=== PATIENT | male | born 1975 | race Hispanic/Latino ===

== ENCOUNTER 2018-12-25 18:26 | Emergency (ER) | payer MEDICARE, OTHER ==
[~2018-12-25 18:26] MED LIST: BUSP10TA3 PO; DIVA500T52 PO; FENO145T37 PO; LEVO500T89 PO; LEVO75TA10 PO; METR-172 PO; OMEG-75 PO; OMEP40CA37 PO; TAMS0.4C32 PO; TRAM-355 PO
[2018-12-25 18:56] LABS: BASOPHILS % (AUTO) 2.8 % (0.0-5.0); EOSINOPHILS % (AUTO) 2.3 % (0.0-8.0); LYMPHOCYTES % (AUTO) 13.7 % (21.0-51.0); MEAN CORPUSCULAR HEMOGLOBIN 30.6 pg (27.0-33.0); MEAN CORPUSCULAR HGB CONC 33.8 g/dL (32.0-36.0); MEAN CORPUSCULAR VOLUME 90.7 fL (79-99); MONOCYTES % (AUTO) 4.6 % (3.0-13.0); NEUTROPHILS % (AUTO) 76.6 % (40.0-77.0); NUCLEATED RED BLOOD CELLS 0.1 % (0.0-0.19); PLATELET COUNT (AUTO) 213 K/uL (130-400); RED BLOOD CELL COUNT(AUTO) 5.18 MIL/uL (4.50-6.20); RED CELL DISTRIBUTION WIDTH 14.2 % (11.0-15.5); WHITE BLOOD COUNT (AUTO) 10.7 K/uL (4.8-10.8)
[2018-12-25 18:58] LABS: CREATININE 1.1 mg/dL (0.5-1.5); POTASSIUM 3.6 mmol/L (3.5-5.1)
[2018-12-25 19:01] LABS: INR 0.91 (0.85-1.15); PARTIAL THROMBOPLASTIN TIME 30.3 SEC (26.3-35.5); PROTHROMBIN TIME 9.6 SEC (9.6-11.6)
[2018-12-25 19:07] LABS: ALBUMIN 3.6 g/dL (3.5-5.0); BILIRUBIN,TOTAL 0.5 mg/dL (0.2-1.0); TOTAL PROTEIN, SERUM 7.3 g/dL (6.0-8.3)
[2018-12-25] MEDS ORDERED: ASPIRIN 325 MG TABLET ONE (20:22)
== END 2018-12-25 22:15 | disposition home or self-care (01) ==
LOC: EDH 18:26
DX: R07.89 Other chest pain (principal); E78.00 Pure hypercholesterolemia, unspecified; F31.9 Bipolar disorder, unspecified; F41.9 Anxiety disorder, unspecified; E07.9 Disorder of thyroid, unspecified; Z72.0 Tobacco use
CPT/HCPCS: 36415; 71045; 80053; 84484; 85025; 85610; 85730; 93005

== ENCOUNTER → 2019-01-08 | Outpatient (CLI) | payer OTHER ==
[~2019-01-08] MED LIST changes: +ALBUTEROL SULFATE 0.083% 2.5 MG/3 ML INH IH ONE
== END ==
LOC: RESP 13:02
PROVIDERS: ATTEND Internal Medicine Cardiovascular Disease
DX: G47.33 Obstructive sleep apnea (adult) (pediatric) (principal); R06.02 Shortness of breath; F17.200 Nicotine dependence, unspecified, uncomplicated
CPT/HCPCS: 94060; 94727; 94729

== ENCOUNTER → 2019-02-06 | Outpatient (CLI) | payer OTHER ==
[~2019-02-06] MED LIST changes: -ALBUTEROL SULFATE 0.083% 2.5 MG/3 ML INH IH ONE
== END | disposition home or self-care (01) ==
LOC: SHCH 08:27
PROVIDERS: ATTEND Internal Medicine Cardiovascular Disease
DX: I20.9 Angina pectoris, unspecified (principal)
CPT/HCPCS: 93306

== ENCOUNTER → 2019-02-11 | Outpatient (CLI) | payer OTHER ==
[~2019-02-11] VITALS: Ht 175.3 cm; Wt 123.8 kg
[2019-02-11] MEDS: REGADENOSON 0.4 MG/5 ML PF SYG IVP SCH (10:35)
== END | disposition home or self-care (01) ==
LOC: SHCH 08:07
PROVIDERS: ATTEND Internal Medicine Cardiovascular Disease
DX: I20.9 Angina pectoris, unspecified (principal)
CPT/HCPCS: 78452; 93017; 96374; A9500 ×2; J2785

== ENCOUNTER 2019-11-25 12:08 | Observation (INO) | payer MEDICARE, OTHER ==
[~2019-11-25] VITALS: Ht 175.3 cm; Wt 122.9 kg
[~2019-11-25 12:08] MED LIST changes: +FENO145T26 PO; -FENO145T37 PO; +OMEP40CA13 PO; -OMEP40CA37 PO
[2019-11-25 13:30] LABS: CREATININE 1.1 mg/dL (0.5-1.5); POTASSIUM 3.9 mmol/L (3.5-5.1)
[2019-11-25 13:33] LABS: BASOPHILS % (AUTO) 0.8 % (0.0-5.0); EOSINOPHILS % (AUTO) 2.7 % (0.0-8.0); HEMATOCRIT 44.8 % (42-54); LYMPHOCYTES % (AUTO) 14.3 % (21.0-51.0); MEAN CORPUSCULAR HEMOGLOBIN 30.9 pg (27.0-33.0); MEAN CORPUSCULAR HGB CONC 33.5 g/dL (32.0-36.0); MEAN CORPUSCULAR VOLUME 92.4 fL (79-99); MONOCYTES % (AUTO) 8.2 % (3.0-13.0); NEUTROPHILS % (AUTO) 71.3 % (40.0-77.0); PLATELET COUNT (AUTO) 219 K/uL (130-400); RED BLOOD CELL COUNT(AUTO) 4.85 MIL/uL (4.50-6.20); RED CELL DISTRIBUTION WIDTH 13.5 % (11.0-15.5)
[2019-11-25 13:36] LABS: ALBUMIN 3.4 g/dL (3.5-5.0); BILIRUBIN,DIRECT 0.1 mg/dL (0.0-0.3); BILIRUBIN,TOTAL 0.3 mg/dL (0.2-1.0); TOTAL PROTEIN, SERUM 6.9 g/dL (6.0-8.3)
[2019-11-25 13:42] LABS: INR 0.87 (0.85-1.15); PARTIAL THROMBOPLASTIN TIME 27.6 SEC (26.3-35.5); PROTHROMBIN TIME 9.4 SEC (9.6-11.6)
[2019-11-25] MEDS ORDERED: ASPIRIN 81MG TAB.CHEW ONE (14:22)
[2019-11-25] MEDS ORDERED: ENOXAPARIN SODIUM 100 MG/1 ML SQ ONE (14:22)
[2019-11-25] MEDS ORDERED: CLOPIDOGREL BISULFATE 75 MG TAB ONE (14:23)
--- NOTE | 2019-11-25 16:12 | NUR ---
DCP: HOME SW met with pt who is on SSD for Bipolar and anxiety. Lives with HANNA Tatum [phone], mother Taylor Allison [phone] is ER contact. Pt has provider services 3.5 hrs a day thru [facility], no DME or HH services. PCP is Dr Jacques. Pt denies dc needs, plan is home at pr. Addendum: 11/25/19 at 1615 by NI PAGE SS Amended: Links added.
[2019-11-25 18:25] VITALS: BP 124/85
--- NOTE | 2019-11-25 19:50 | NUR ---
SMOKING PT'S ROOM SMELLED OF CIGARETTES. PT CLAIMS THAT HE HAD SMOKED IN THE ROOM. TOLD PT HE CAN NOT SMOKE IN THE ROOM. PT AGREED NOT TO DO IT AGAIN.
--- NOTE | 2019-11-25 20:00 | NUR ---
ASSESS SHIFT ASSESSMENT DONE. ADMISSION DATA BASE COMPLETED. INSTRUCTED TO BE NPO POST MN RIKA ROOT IN AM. PT VERBALIZES UNDERSTANDING. KEPT RESTED AND COMFORTABLE IN BED. ORIENTED TO ROOM AND UNIT. FOR MORE CARE AND MANAGEMENT. Addendum: 11/26/19 at 0245 by DANYA JEAN RN RN Amended: Links added.
[2019-11-25] MEDS ORDERED: ONDANSETRON HCL 4 MG/2 ML VIAL IVP PRN (21:15)
[2019-11-25] MEDS ORDERED: GUAIFENESIN-DM 200/20 MG 10 ML PO PRN (21:15)
[2019-11-25] MEDS ORDERED: MAG HYDROX/AL HYDROX/SIMETH ES 30 ML SUSP UDCUP PO PRN (21:15)
[2019-11-25] MEDS ORDERED: ZOLPIDEM TARTRATE 5 MG TAB PO PRN (21:15)
[2019-11-25] MEDS ORDERED: DIPHENHYDRAMINE HCL 25 MG CAPSULE PO PRN (21:15)
[2019-11-25] MEDS ORDERED: ACETAMINOPHEN 325 MG TAB PO PRN (21:15)
[2019-11-25] MEDS ORDERED: SODIUM CHLORIDE 0.9% 10 ML VIAL IVP SCH (21:15)
[2019-11-25] MEDS ORDERED: HYDROCODONE/ACETAMINOPHEN 10/325 MG TAB PO PRN (21:30)
[2019-11-25] MEDS ORDERED: TRAZ-187 PO (21:34)
[2019-11-25] MEDS ORDERED: HYDR-4068 PO (21:34)
[2019-11-25] MEDS ORDERED: LAMO200T10 PO (21:34)
[2019-11-25] MEDS ORDERED: LURA80TA PO (21:34)
[2019-11-25] MEDS ORDERED: OMEP40CA13 PO (21:34)
[2019-11-25] MEDS ORDERED: CEPH500B PO (21:34)
[2019-11-25 21:51] LABS: CREATINE KINASE, TOTAL 58 U/L (21-232); MYOGLOBIN 19 ng/mL (10-92); TROPONIN I < 0.04 ng/mL (0.00-0.06)
--- NOTE | 2019-11-25 23:31 | NUR ---
SOB PT CALLS AND CLAIMS OF HAVING SOB. AND HAD A COUGHING EPISODE. O2 SAT=95% ON RA. KEPT HOB ELEVATED. PLACED PT ON O2 AT 2LPM VIA NC. MEDICATED WITH COUGH SYRUP. WILL RE-ASSESS PT.
[2019-11-25 23:47] VITALS: BP 136/77
--- NOTE | 2019-11-26 02:00 | NUR ---
ROUNDS PT RESTING WELL, FAIRLY ASLEEP. NOTED TO BE SNORING WHEN ASLEEP. KEPT UNDISTURBED FOR NOW. KEPT HOB ELEVATED. WILL MONITOR PT.
[2019-11-26 03:36] LABS: MEAN CORPUSCULAR HEMOGLOBIN 31.3 pg (27.0-33.0); MEAN CORPUSCULAR HGB CONC 33.3 g/dL (32.0-36.0); MEAN CORPUSCULAR VOLUME 93.8 fL (79-99); RED BLOOD CELL COUNT(AUTO) 4.8 MIL/uL (4.50-6.20); RED CELL DISTRIBUTION WIDTH 13.6 % (11.0-15.5); WHITE BLOOD COUNT (AUTO) 14.3 K/uL (4.8-10.8)
--- NOTE | 2019-11-26 04:00 | NUR ---
SHOWER PT SHOWERED, TOLERATED ACTIVITY WELL. KEPT NPO FOR LEXISCAN. FOR MORE CARE.
[2019-11-26 04:12] LABS: CARBON DIOXIDE 31 mmol/L (21-32); CHLORIDE 103 mmol/L (101-111); CREATINE KINASE, TOTAL 56 U/L (21-232); CREATININE 1.1 mg/dL (0.5-1.5); GLOMERULAR FILTR. RATE CALC 77 mL/min (>60); GLUCOSE,RANDOM 138 mg/dL (70-105); MYOGLOBIN 20 ng/mL (10-92); POTASSIUM 4.2 mmol/L (3.5-5.1); SODIUM SERUM 139 mmol/L (136-145); TROPONIN I < 0.04 ng/mL (0.00-0.06); UREA NITROGEN, BLOOD 13 mg/dL (7-18)
[2019-11-26 04:17] VITALS: BP 124/82
[2019-11-26] MEDS: LEVOTHYROXINE 75 MCG TABLET PO SCH (06:37)
[2019-11-26] MEDS: PANTOPRAZOLE SODIUM 40 MG TABLET.DR PO SCH (06:37)
[2019-11-26 07:54] VITALS: BP 130/77
[2019-11-26] MEDS ORDERED: ASPIRIN 81MG TAB.CHEW PO SCH (09:00)
[2019-11-26] MEDS ORDERED: TAMSULOSIN HCL 0.4 MG CAP.ER.24H PO SCH (09:00)
[2019-11-26] MEDS ORDERED: LURASIDONE HCL 80 MG PO SCH (09:00)
[2019-11-26] MEDS: CEPHALEXIN 500 MG CAPSULE PO SCH ×2 (09:00→21:37)
[2019-11-26] MEDS ORDERED: CLOPIDOGREL BISULFATE 75 MG TAB PO SCH (09:00)
[2019-11-26] MEDS ORDERED: REGADENOSON 0.4 MG/5 ML PF SYG IVP SCH (11:00)
[2019-11-26 11:38] VITALS: BP 116/71
[2019-11-26] MEDS: ENOXAPARIN SODIUM 120 MG/0.8ML SQ SCH ×2 (15:33→21:39)
[2019-11-26] MEDS: BUSPIRONE HCL 5 MG TABLET PO SCH ×3 (15:35→21:37)
[2019-11-26] MEDS: LAMOTRIGINE 100 MG TABLET PO SCH ×2 (15:35→21:37)
[2019-11-26 16:00] VITALS: BP 117/63
[2019-11-26 19:00] VITALS: BP 124/84
[2019-11-26] MEDS ORDERED: TRAZODONE HCL 100 MG TABLET PO SCH (21:00)
[2019-11-26 23:00] VITALS: BP 111/69
[2019-11-27 03:00] VITALS: BP 124/81
[2019-11-27 04:45] LABS: HEMATOCRIT 46.2 % (42-54); MEAN CORPUSCULAR HEMOGLOBIN 30.6 pg (27.0-33.0); MEAN CORPUSCULAR HGB CONC 32.9 g/dL (32.0-36.0); PLATELET COUNT (AUTO) 221 K/uL (130-400); RED BLOOD CELL COUNT(AUTO) 4.97 MIL/uL (4.50-6.20); RED CELL DISTRIBUTION WIDTH 13.6 % (11.0-15.5); WHITE BLOOD COUNT (AUTO) 13.3 K/uL (4.8-10.8)
[2019-11-27] MEDS: PANTOPRAZOLE SODIUM 40 MG TABLET.DR PO SCH (05:54)
[2019-11-27] MEDS: LEVOTHYROXINE 75 MCG TABLET PO SCH (05:54)
[2019-11-27 06:31] LABS: BAND NEUTROPHILS % (MANUAL) 5 % (0-2); LYMPHOCYTES % (MANUAL) 19 % (22-44); MAN.DIFF COMMENT-IMPRESSION MANUAL DIFFERENTIAL; MONOCYTES % (MANUAL) 7 % (2-9); PLATELET MORPHOLOGY COMMENT ADEQUATE; REACTIVE LYMPHOCYTES 2 % (0-0); SEGMENTED NEUTROPHILS % 67 % (40-70)
--- NOTE | 2019-11-27 07:15 | NUR ---
note AOX3. DENIES PAIN OR DISCOMFORT AT THIS TIME. NO CHEST PAIN. TELEMETRY UNEVENTFUL. NSR. LEXISCAN RESULTS FOUND ON INFINIT AND SHOWN TO DR FRANCO WHO JUST FINISHED ROUNDING AND HE GAVE ORDERS TO DC PATIENT HOME TO FOLLOW UP WITH HIM TOMORROW WITH PRE-SCHEDULED APPOINTMENT. WILL DC HOME SOON.
[2019-11-27 07:37] VITALS: BP 126/78
--- NOTE | 2019-11-27 08:45 | NUR ---
NOTE DISCHARGE INSTRUCTIONS GIVEN TO PATIENT AT THIS TIME. VERBALIZED UNDERSTANDING. REFER TO DC SUMMARY FOR DETAILS.
== END 2019-11-27 08:50 | disposition home or self-care (01) ==
LOC: EDH 12:08 → EDHIP 12:09 → 3BH 18:27
PROVIDERS: ADMIT Internal Medicine; ATTEND Internal Medicine
DX: I25.110 Atherosclerotic heart disease of native coronary artery with unstable angina pectoris (principal); J44.9 Chronic obstructive pulmonary disease, unspecified; E03.9 Hypothyroidism, unspecified; F31.9 Bipolar disorder, unspecified; F41.9 Anxiety disorder, unspecified; F17.210 Nicotine dependence, cigarettes, uncomplicated; E66.01 Morbid (severe) obesity due to excess calories; D72.829 Elevated white blood cell count, unspecified; Z68.41 Body mass index [BMI] 40.0-44.9, adult
CPT/HCPCS: 36415 ×3; 71046; 78452; 80048 ×3; 80076; 82550 ×3; 83874 ×2; 84484 ×3; 85025 ×2; 85027; 85610; 85730; 93017; 96372; 99284; A9500 ×2; G0378 ×13; J1650 ×2; J2785; 96374

== ENCOUNTER → 2022-03-23 | Outpatient (CLI) | payer MEDICARE ==
[~2022-03-23] MED LIST changes: +CEPH500B PO; -DIVA500T52 PO; -FENO145T26 PO; +HYDR-4068 PO; +IOHEXOL 350 MG/ML 100ML INFUS..BTL IV ONE; +LAMO200T10 PO; -LEVO500T89 PO; +LURA80TA2 PO; -METR-172 PO; -OMEG-75 PO; -OMEP40CA13 PO; +OMEP40CA21 PO; -TRAM-355 PO; +TRAZ-187 PO
== END | disposition home or self-care (01) ==
LOC: RAH 10:04
PROVIDERS: ATTEND Internal Medicine Gastroenterology
DX: N28.1 Cyst of kidney, acquired (principal); R10.10 Upper abdominal pain, unspecified; M47.815 Spondylosis without myelopathy or radiculopathy, thoracolumbar region; N20.0 Calculus of kidney; K57.90 Diverticulosis of intestine, part unspecified, without perforation or abscess without bleeding
CPT/HCPCS: 74178; Q9967

== ENCOUNTER 2022-09-10 08:01 | Emergency (ER) | payer MEDICARE ==
[~2022-09-10] VITALS: Ht 175.3 cm; Wt 119.3 kg
[~2022-09-10 08:01] MED LIST changes: -IOHEXOL 350 MG/ML 100ML INFUS..BTL IV ONE
[2022-09-10 10:39] VITALS: BP 106/63
[2022-09-10] MEDS ORDERED: NAPR500T6 PO (11:55)
== END 2022-09-10 12:21 | disposition home or self-care (01) ==
LOC: EDH 08:01
DX: S00.03XA Contusion of scalp, initial encounter (principal); S50.02XA Contusion of left elbow, initial encounter; S80.02XA Contusion of left knee, initial encounter; F41.9 Anxiety disorder, unspecified; F31.9 Bipolar disorder, unspecified; E78.00 Pure hypercholesterolemia, unspecified; E11.9 Type 2 diabetes mellitus without complications; I10 Essential (primary) hypertension; Z79.899 Other long term (current) drug therapy; W01.0XXA Fall on same level from slipping, tripping and stumbling without subsequent striking against object, initial encounter; Y93.89 Activity, other specified; Y92.89 Other specified places as the place of occurrence of the external cause; Y99.8 Other external cause status
CPT/HCPCS: 70450; 73080; 73562

== ENCOUNTER → 2023-12-13 | Outpatient (CLI) | payer OTHER ==
[~2023-12-13] MED LIST changes: +NAPR500T6 PO
== END | disposition home or self-care (01) ==
LOC: RAH 13:38
PROVIDERS: ATTEND Internal Medicine
DX: R06.02 Shortness of breath (principal)
CPT/HCPCS: 93306

== ENCOUNTER → 2024-01-28 | Outpatient (CLI) | payer OTHER ==
[2024-01-28] MEDS: REGADENOSON 0.4 MG/5 ML PF SYG IVP SCH (14:11)
== END | disposition home or self-care (01) ==
LOC: RAH 08:44
PROVIDERS: ATTEND Internal Medicine
DX: R07.89 Other chest pain (principal)
CPT/HCPCS: 78452; 93017; J2785; A9500 ×2; 96374

== ENCOUNTER → 2024-09-24 | Outpatient (CLI) | payer OTHER, MEDICARE ==
[~2024-09-24] MED LIST changes: +NAPR-1506 PO; -NAPR500T6 PO
--- NOTE | 2024-09-24 14:01 | HMCIMG ---
ULTRASOUND OF THE PELVIS LIMITED INDICATION: Pelvic pain COMPARISONS: None TECHNIQUE: Transabdominal real-time sonographic images were acquired earlier, and subsequently made available for review. FINDINGS/IMPRESSION: Prostate gland volume = 20 mL. Urinary bladder appears normal without any free fluid demonstrated. Prevoid volume = 470 mL and postvoid = 12 mL.
== END | disposition home or self-care (01) ==
LOC: RAH 13:03
PROVIDERS: ATTEND Internal Medicine
DX: N40.1 Benign prostatic hyperplasia with lower urinary tract symptoms (principal); R10.2 Pelvic and perineal pain
CPT/HCPCS: 76857

== ENCOUNTER → 2024-11-21 | Outpatient (CLI) | payer OTHER, MEDICARE ==
--- NOTE | 2024-11-21 20:10 | HMCSR ---
APPROVED REPORT EXAM: Two-dimensional and M-mode echocardiogram with Doppler and color Doppler. INDICATION ICD: Chest pain R07.9 2D Dimensions RVDd3.2 cmLVEF(%)55.6 (>50%)LVED Vol(simp.)91.0 mL IVSd0.9 (0.7-1.1cm)FS(%)29 %LVES Vol(simp.)39.0 mL LVDd5.3 (3.8-5.6cm)LA (2D)3.1 (1.6-4.0cm)LVEF(%, simp.)57 % PWd0.9 (0.7-1.1cm)Ao Root(2D)3.3 (2.0-3.7cm)LA ESV INDEX (BP)13.48 mL/m2 LVDs3.7 (2.5-4.0cm)LVOT diam2.0 (1.8-2.4cm) IVC diam1.3 cm M-Mode Dimensions EPSS0.6 cm LA (MM)2.9 (1.6-4.0cm) Ao Root(MM)2.5 (2.0-3.7cm) Aortic Valve AoV Vmax1.9 m/Kayleigh Peak GR14.0 mmHgLVOT Vmax1.2 m/s AoV VTI0.3 mAo Mean GR6.9 mmHgLVOT VTI0.22 m SHEFALI (VMAX)1.89 cm2AVA (VTI) 1.9 cm2 Mitral Valve MV E Vmax79.3 cm/sDECEL Hsva206 ms MV A Vmax50.0 cm/sP 1/2 T91 ms E/A ratio1.6MVA (PHT)2.4 cm2 TDI E/E' Medial8.0E/E' Lateral8.8 Medial E' Peak V9.86 cm/sLateral E' Peak V9.00 cm/s Pulmonary Valve PV Vmax1.3 m/sPV VTI0.28 mPV Mean GR4.0 mmHg PV Peak GR6.9 mmHg Left Ventricle The left ventricle is normal size. There is normal left ventricular wall thickness. LVEF is 60-65%. T he left ventricular diastolic function is normal. Right Ventricle The right ventricle is normal size. The right ventricular systolic function is normal. Atria The left atrium size is normal. The right atrium size is normal. Aortic Valve The aortic valve is normal in structure. No aortic regurgitation is present. There is no aortic valvu lar stenosis. Mitral Valve The mitral valve is normal in structure. There is no mitral valve regurgitation noted. There is no mi tral valve stenosis. Tricuspid Valve The tricuspid valve is normal in structure. There is no tricuspid valve regurgitation noted. Pulmonic Valve The pulmonary valve is normal in structure. There is no pulmonic valvular regurgitation. Great Vessels The aortic root is normal in size. The IVC is normal in size and collapses >50% with inspiration. Pericardium There is no pericardial effusion. Conclusion The left ventricle is normal size. LVEF is 60-65%. The left ventricular diastolic function is normal. The right ventricle is normal size. The right ventricular systolic function is normal. The left atrium size is normal. The right atrium size is normal. No valvular pathology. There is no pericardial effusion.
== END | disposition home or self-care (01) ==
LOC: RAH 13:24
PROVIDERS: ATTEND Internal Medicine
DX: R07.9 Chest pain, unspecified (principal)
CPT/HCPCS: 93306

== ENCOUNTER → 2024-11-27 | Outpatient (CLI) | payer OTHER, MEDICARE ==
[~2024-11-27] MED LIST changes: +IOHEXOL-350 75 ML VIAL IV ONE
--- NOTE | 2024-11-27 12:45 | HMCIMG ---
CT CHEST W/CONTRAST HISTORY: Pulmonary nodule COMPARISON: None TECHNIQUE: Multiple sequential axial images of the chest were obtained from the thoracic inlet through upper abdomen. Patient was given 75 cc of Omnipaque through intravenous route. FINDINGS: There is no evidence of pulmonary nodule or parenchymal disease. No pleural effusion or pericardial effusion is seen. There is no evidence of pneumothorax. There are normal size mediastinal and hilar lymph nodes. The heart is not enlarged. Degenerative changes of the thoracolumbar spine are present. There is no evidence of adrenal nodule. Dystrophic calcification with adjacent cyst is seen in the anterior aspect of the right kidney measuring 1 cm. IMPRESSION: 1. No evidence of pulmonary nodule or effusion is seen. CT was performed with one or more following dose reduction techniques: automated exposure control, adjustment of the mA and kv according to patient's size, or use of a iterative reconstruction technique.
== END | disposition home or self-care (01) ==
LOC: RAH 10:46
PROVIDERS: ATTEND Internal Medicine
DX: R91.1 Solitary pulmonary nodule (principal); M47.815 Spondylosis without myelopathy or radiculopathy, thoracolumbar region; N28.1 Cyst of kidney, acquired; N28.89 Other specified disorders of kidney and ureter
CPT/HCPCS: 71260; Q9967

== ENCOUNTER → 2025-01-07 | Outpatient (CLI) | payer OTHER, MEDICARE ==
[~2025-01-07] MED LIST changes: -IOHEXOL-350 75 ML VIAL IV ONE
--- NOTE | 2025-01-07 21:33 | HMCIMG ---
EXAM: MR Brain Without IV Contrast CLINICAL HISTORY: Amnesia. TECHNIQUE: Multiplanar multi-sequence MRI of the brain. CONTRAST: No. COMPARISON: CT dated 09/10/22. FINDINGS: No abnormal parenchymal signal is present. No evidence of acute cortical infarction, hemorrhage, mass or mass effect. The ventricular system is normal in size, shape, and contour. No hydrocephalus. No abnormal extra-axial fluid collection is present. The marrow signal within the skull base and calvarium is intact. Moderate-sized mucus retention cyst in the left maxillary sinus. Remaining paranasal sinuses and mastoid air cells are clear. IMPRESSION: No acute intracranial abnormality or mass. Moderate-sized mucus retention cyst in the left maxillary sinus. /[place]
== END | disposition home or self-care (01) ==
LOC: RAH 08:20
PROVIDERS: ATTEND Internal Medicine
DX: J34.1 Cyst and mucocele of nose and nasal sinus (principal); R41.3 Other amnesia
CPT/HCPCS: 70551

== ENCOUNTER → 2025-03-05 | Outpatient (CLI) | payer OTHER, MEDICARE ==
[~2025-03-05] MED LIST changes: +IOHEXOL 350 MG/ML 100ML INFUS..BTL IV ONE
--- NOTE | 2025-03-05 23:57 | HMCIMG ---
EXAM: CT Abdomen and Pelvis with IV contrast CLINICAL HISTORY: Unspecified abdominal pain TECHNIQUE: Axial computed tomography images of the abdomen and pelvis with intravenous contrast. CONTRAST: with intravenous contrast. COMPARISON: Study dated 03/23/22. FINDINGS: LUNG BASES: The lung bases appear clear. No pleural effusions are seen. LIVER: Unremarkable. GALLBLADDER AND BILE DUCTS: The gallbladder appears within normal limits. No radioopaque gallstones are seen. No biliary ductal dilatation is evident. PANCREAS: Unremarkable. SPLEEN: Unremarkable. ADRENAL GLANDS: 1.9 x 1.2 cm-sized mildly enhancing lesion in the right adrenal gland. No fat content or calcification within. KIDNEYS, URETERS, AND BLADDER: Multiple non-enhancing cysts in both kidneys largest measuring 2.4 x 2.2 cm in the left upper pole. One of the cysts in the right kidney appears calcified. The kidneys appear within normal limits. There is no hydronephrosis or hydroureter. No urinary calculi are seen. STOMACH AND BOWEL: There is diffuse thickening of the gastric wall in the body of the stomach. Colonic diverticulosis without diverticulitis. No evidence of bowel obstruction. No evidence suggesting enteritis or colitis. APPENDIX: No evidence of acute appendicitis on CT examination. PERITONEUM: No free fluid. No free air. LYMPH NODES: No lymphadenopathy is evident. REPRODUCTIVE: Unremarkable as visualized. VASCULATURE: Dilated clarence-gastric collateral noted. Mild atherosclerotic changes in the form of eccentric vessel wall calcification in the abdominal aorta and its major branches. No evidence of abdominal aortic aneurysm. BONES: Degenerative changes in the visualized spine in the form of marginal osteophytes and degenerative discs at multiple lumbar levels. No aggressive appearing osseous lesion. No acute osseous pathology evident. IMPRESSION: 1. Diffuse gastric wall thickening in the body of the stomach. Upper GI or endoscopy when patient is clinically able suggested 2. 1.9 x 1.2 cm mildly enhancing right adrenal lesion. 3. Dilated clarence-gastric collateral noted. 4. Colonic diverticulosis without diverticulitis. /[place]
== END | disposition home or self-care (01) ==
LOC: RAH 08:00
PROVIDERS: ATTEND Internal Medicine
DX: K57.30 Diverticulosis of large intestine without perforation or abscess without bleeding (principal); N28.1 Cyst of kidney, acquired; K31.89 Other diseases of stomach and duodenum; E27.8 Other specified disorders of adrenal gland; R10.9 Unspecified abdominal pain; I70.0 Atherosclerosis of aorta; M47.816 Spondylosis without myelopathy or radiculopathy, lumbar region; M25.78 Osteophyte, vertebrae
CPT/HCPCS: 74177; Q9967

== ENCOUNTER → 2025-03-24 | Outpatient (CLI) | payer OTHER, MEDICARE ==
[~2025-03-24] MED LIST changes: -IOHEXOL 350 MG/ML 100ML INFUS..BTL IV ONE
[2025-03-24 11:13] LABS: CREATININE 1.1 mg/dL (0.5-1.3); GLOMERULAR FILTR. RATE CALC 81.0 mL/min (>90); UREA NITROGEN, BLOOD 12.0 mg/dL (7-18)
== END | disposition home or self-care (01) ==
LOC: LAB 09:57
PROVIDERS: ATTEND Internal Medicine
DX: R19.01 Right upper quadrant abdominal swelling, mass and lump (principal)
CPT/HCPCS: 36415; 82565; 84520

== ENCOUNTER → 2025-03-30 | Outpatient (CLI) | payer OTHER, MEDICARE ==
[~2025-03-30] MED LIST changes: +IOHEXOL-350 75 ML VIAL IV ONE
--- NOTE | 2025-03-31 09:18 | HMCIMG ---
EXAMINATION: CT Abdomen without and with contrast. CLINICAL HISTORY: Right upper quadrant abdominal swelling, mass, and lump / right upper quadrant abdominal swelling, mass, and lump. TECHNIQUE: Multiple contiguous axial CT images were obtained through the abdomen following the administration of intravenous contrast. Coronal and sagittal reconstructions were also obtained. COMPARISON: Prior CT abdomen and pelvis on 03/05/2025. FINDINGS: Included chest is within normal limits. The liver is enlarged in caliber with uniform decreased density. The spleen is enlarged, measuring 16 cm. Stable bilateral renal cortical cysts, the largest in the left kidney measuring 2.4 x 2.2 x 2.1 cm. Right kidney cyst demonstrates calcifications. Stable, mildly enhancing right adrenal lesion measures 1.9 x 1.2 cm. The gallbladder, pancreas, and left adrenal gland appear within normal limits. There are colonic diverticula. Rest of the bowel loops are normal in caliber without evidence of obstruction, ileus, or obvious bowel wall thickening. There is no ascites or lymphadenopathy. The opacified abdominal vessels are patent. No acute or suspicious osseous abnormality. There are multilevel mild degenerative spondylotic changes of the spine. IMPRESSION: Hepatosplenomegaly with hepatic steatosis. Stable bilateral renal cortical cysts. No hydronephrosis. Stable right adrenal adenoma. Colonic diverticula. /[place]
== END | disposition home or self-care (01) ==
LOC: RAH 08:49
PROVIDERS: ATTEND Internal Medicine
DX: K76.0 Fatty (change of) liver, not elsewhere classified (principal); N28.1 Cyst of kidney, acquired; D35.01 Benign neoplasm of right adrenal gland; K57.30 Diverticulosis of large intestine without perforation or abscess without bleeding; R19.01 Right upper quadrant abdominal swelling, mass and lump; M47.817 Spondylosis without myelopathy or radiculopathy, lumbosacral region
CPT/HCPCS: 74170; Q9967

== ENCOUNTER 2025-05-04 05:52 | Day surgery (SDC) | payer OTHER, MEDICARE ==
[2025-05-04] VITALS (10 sets, daily range): BP systolic 119–136; BP diastolic 8–74; PULSE 68–79; RESP 14–17; TEMP 97.4–98.2
[~2025-05-04] VITALS: Ht 175.3 cm; Wt 118.8 kg
[~2025-05-04 05:52] MED LIST changes: -IOHEXOL-350 75 ML VIAL IV ONE
[2025-05-04] MEDS: 0.9%NACL 1000ML 1,000 ML IV ONE (06:47)
[2025-05-04] MEDS ORDERED: OMEP20CA12 PO (06:53)
[2025-05-04] MEDS ORDERED: GABA300C PO (07:00)
[2025-05-04] MEDS ORDERED: BUSPAR PO (07:00)
[2025-05-04] MEDS ORDERED: HYDR-3830 PO (07:00)
[2025-05-04] MEDS ORDERED: FLUT1BLS15 IH (07:00)
[2025-05-04] MEDS ORDERED: EMPA25TA PO (07:00)
[2025-05-04] MEDS ORDERED: METF-446 PO (07:00)
[2025-05-04] MEDS ORDERED: FLUO-341 PO (07:00)
[2025-05-04] MEDS ORDERED: PRAV10TA37 PO (07:10)
[2025-05-04] MEDS ORDERED: LINA145C PO (07:10)
[2025-05-04] MEDS ORDERED: FURO20TA4 PO (07:10)
[2025-05-04] MEDS ORDERED: BACL10TA PO (07:10)
[2025-05-04] MEDS ORDERED: LISI5TAB21 PO (07:10)
[2025-05-04] MEDS ORDERED: ICOS1CAP2 PO (07:10)
[2025-05-04] MEDS ORDERED: GLIP5TAB15 PO (07:10)
[2025-05-04] MEDS ORDERED: RIVAROXABAN 2.5 MG PO (07:10)
[2025-05-04] MEDS ORDERED: TIRZ15PE SQ (07:10)
[2025-05-04] MEDS ORDERED: MIRA25TA PO (07:10)
--- NOTE | 2025-05-04 10:11 | NUR ---
Full and complete discharge instructions given to Patient and Family both verbally and in writing. Explained GI procedure precautions and follow up. All questions answered. PIV removed with catheter tip intact. Family at bedside appearing supportive. W/C to POV with Family to home
== END 2025-05-04 10:00 | disposition home or self-care (01) ==
LOC: ENDO 05:52 → DAH 05:52 → ENDO 10:00
PROVIDERS: ATTEND Internal Medicine Gastroenterology
DX: R19.5 Other fecal abnormalities (principal); D12.8 Benign neoplasm of rectum; R10.13 Epigastric pain; K31.89 Other diseases of stomach and duodenum; K21.00 Gastro-esophageal reflux disease with esophagitis, without bleeding; K29.50 Unspecified chronic gastritis without bleeding; I10 Essential (primary) hypertension; E11.9 Type 2 diabetes mellitus without complications; F31.9 Bipolar disorder, unspecified; F41.9 Anxiety disorder, unspecified; E78.5 Hyperlipidemia, unspecified; M19.90 Unspecified osteoarthritis, unspecified site; K59.04 Chronic idiopathic constipation; E66.01 Morbid (severe) obesity due to excess calories; K76.0 Fatty (change of) liver, not elsewhere classified; K64.1 Second degree hemorrhoids; K64.4 Residual hemorrhoidal skin tags; Z79.01 Long term (current) use of anticoagulants; Z79.899 Other long term (current) drug therapy
CPT/HCPCS: 82948 ×2; 43239; 45385; J7030 ×2; J2704; A4620; A7002; 45380; J3490